=== PATIENT | male | born 1955 | race Caucasian/White ===

== ENCOUNTER 2024-05-04 09:37 | Emergency (ER) | payer MEDICARE, MEDICAID ==
[2024-05-04] MEDS: Morphine 4 MG/ML Syringe IM ONE (10:18)
== END 2024-05-04 11:21 | disposition home or self-care (01) ==
LOC: MW.ED 09:37
DX: R10.84 Generalized abdominal pain (principal)
CPT/HCPCS: 96372; 99283; J2270